=== PATIENT | female | born 1985 | race Two or more races ===

== ENCOUNTER 2019-05-15 07:46 | Emergency (ER) | payer BC ==
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
[2019-05-15 09:50] VITALS: BP 124/79
== END 2019-05-15 09:25 | disposition home or self-care (01) ==
LOC: ER 07:46
DX: S81.851A Open bite, right lower leg, initial encounter (principal); W54.0XXA Bitten by dog, initial encounter
CPT/HCPCS: 99283

== ENCOUNTER 2020-10-07 09:29 | Emergency (ER) | payer OTHER, BC ==
[2020-10-07 09:38] VITALS: BP 148/90
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
== END 2020-10-07 13:38 | disposition home or self-care (01) ==
LOC: ER 09:29
DX: M54.5 Low back pain (principal); V43.52XA Car driver injured in collision with other type car in traffic accident, initial encounter
CPT/HCPCS: 72110; 81025; 99284